=== PATIENT | male | born 1995 | race Caucasian/White ===

== ENCOUNTER 2022-07-14 04:08 | Day surgery (SDC) | payer OTHER ==
[2022-07-09 09:12] VITALS: BMI 23.7
[2022-07-14 06:26] VITALS: RESP 20
[2022-07-14] MEDS ORDERED: MIDAZOLAM HCL 2 MG/2 ML SINGLE DOSE VIAL ONE (08:00)
[2022-07-14] MEDS ORDERED: PROPOFOL 40 ML ONE (08:12)
[2022-07-14] MEDS ORDERED: KETOROLAC TROMETHAMINE 30 MG/1 ML VIAL ONE (08:22)
[2022-07-14 08:40] VITALS: TEMP 97.5
[2022-07-14 09:45] VITALS: BP 118/84; PULSE 60
== END 2022-07-14 10:02 | disposition home or self-care (01) ==
LOC: JASU-SURG 04:08
PROVIDERS: ATTEND Urology
PROC: 0TF3XZZ Fragmentation in Right Kidney Pelvis, External Approach (ICD-10-PCS; principal; 2022-07-14 08:00)
DX: N20.0 Calculus of kidney (principal)